=== PATIENT | female | born 1945 | race Caucasian/White ===

== ENCOUNTER 2016-10-10 18:15 | Emergency (ER) | payer OTHER, MEDICARE ==
[~2016-10-10] VITALS: Ht 167.6 cm; Wt 80.1 kg
[~2016-10-10 18:15] MED LIST: ASPCH81X PO; LIPITOR PO; OMEP20CA9 PO; VERA120T2 PO
[2016-10-10 18:25] VITALS: BP 155/82; PULSE 16; TEMP 36.6; Ht 167.6 cm; Wt 80.1 kg
[2016-10-10] MEDS ORDERED: LPT/20 PO (18:52)
[2016-10-10] MEDS ORDERED: OMEP20TA PO (18:52)
[2016-10-10] MEDS ORDERED: VERA1TAB52 PO (18:52)
[2016-10-10] MEDS ORDERED: ASPI81TA28 PO (18:52)
[2016-10-10 19:24] LABS: HEMATOCRIT 34.2 % (37-47); MEAN CELL VOLUME 92.7 fL (80-100); MEAN CORPUSCULAR HEMOGLOBIN 32.5 pg (25-34); MEAN CORPUSCULAR HGB CONC 35.1 g/dl (32-36); MEAN PLATELET VOLUME 9.3 fL (7.4-10.4); PLATELET COUNT 280 K/uL (130-400); RED BLOOD COUNT 3.69 M/uL (4.2-5.4); WHITE BLOOD COUNT 6.72 K/uL (4.8-10.8)
[2016-10-10 19:38] LABS: PARTIAL THROMBOPLASTIN RATIO 0.9; PROTHROMBIN TIME (PATIENT) 10.2 SECONDS (9.0-12.0)
[2016-10-10 19:42] LABS: BUN/CREATININE RATIO 14.9 (10-20); CALCIUM 8.6 mg/dl (8.5-10.1); CREATININE 0.68 mg/dl (0.60-1.20); POTASSIUM 3.5 mmol/L (3.5-5.1)
--- NOTE | 2016-10-10 19:44 | DIAGNOSTIC IMAGING REPORT ---
Venous Doppler left leg LEFT VENOUS DOPP LOWER EXT UNILAT CLINICAL HISTORY: LEFT, EVAL DVT pain. Edema. TECHNIQUE: Venous Doppler COMPARISON STUDY: None FINDINGS: Normal study IMPRESSION: Normal study Electronically signed by: Fredy Lisa M.D. 10/10/2016 7:42 PM
[2016-10-10 19:45] LABS: ALB/GLOB RATIO 1.2 (0.9-2)
--- NOTE | 2016-10-10 19:49 | EMERGENCY ROOM VISIT NOTE ---
ED Visit Note First contact with patient: 18:30 CHIEF COMPLAINT: Left calf pain, redness and swelling since yesterday HISTORY OF PRESENT ILLNESS: Patient is a 71-year-old white female who presents emergency Department accompanied by her for evaluation of left calf pain , redness, warmth and swelling that she noticed yesterday evening. She traveled by plane to [facility], and just returned yesterday. 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 She did undergo hypercoagulable workup which was negative. She was anticoagulated for several months and then discontinued. She is presently only taking a baby aspirin daily. She states that she wore knee-high compression stockings and walked on the plane as much as possible. She does admit that she was active and did a lot of walking while in [place]. She did not try taking any medications, nor perform any interventions for her symptoms. There has been no injury to the leg. She denies fever. She does not have any symptoms in the right leg. She denies any chest/back pain, palpitations or shortness of breath. REVIEW OF SYSTEMS: Review of systems as per HPI. All other systems reviewed were negative. 10 systems reviewed. PMH: Electronic medical records are reviewed and summarized as above/below. See Problem List. SOCIAL HISTORY: Patient lives at home. . Nonsmoker. PHYSICAL EXAM: Vital Signs: Reviewed Nurse's notes. CONSTITUTIONAL: Patient is a pleasant 71-year-old white female who was awake and alert and in no acute distress. Vital signs are stable. HEART: Regular rate and rhythm. LUNGS: Clear to auscultation. NEUROLOGICAL: Alert oriented, coherent. PERRL, EOMs full, gait normal. EXTREMITIES: Examination of the left leg show an area of slight swelling, erythema, and increased warmth in the proximal medial calf. She has some varicosities and spider veins present in this area, but no palpable cords. The thigh is soft and nontender. There is no pitting edema or joint effusions. Range of motion is full. There is no lymphangitic streaking. EMERGENCY DEPARTMENT COURSE: Laboratory studies including CBC, CMP and coags were drawn and were unremarkable. Ultrasound of the left lower extremity was negative for DVT. By exam, she does have findings that appear more consistent with a superficial thrombophlebitis. Cellulitis was considered, in addition to muscular strain. She was advised to apply warm compresses, take ibuprofen, and to rest and elevate the leg and return to normal activity as her symptoms allow. Follow up with her PCP for further care and management. Venous Doppler left leg LEFT VENOUS DOPP LOWER EXT UNILAT CLINICAL HISTORY: LEFT, EVAL DVT pain. Edema. TECHNIQUE: Venous Doppler COMPARISON STUDY: None FINDINGS: Normal study IMPRESSION: Normal study Problem List Medical Problems: (1) Cystitis Status: Resolved (2) Fibromyalgia Status: Chronic (3) Gastro-Esophageal Reflux Disease Without Esophagitis Status: Chronic (4) Hyperlipidemia, Unspecified Status: Chronic (5) Alf (Current) Use Of Aspirin Status: Chronic (6) Migraines Status: Chronic (7) Personal History Of Pulmonary Embolism Status: Resolved (8) TIA (transient ischemic attack) Status: Resolved Surgical Problems: (1) History of total hip replacement Status: Resolved Current/Historical Medications Scheduled Aspirin (Aspirin Ec), 81 MG PO DAILY Atorvastatin (Atorvastatin Calcium), 10 MG PO HS Verapamil Hcl (Verapamil Hcl Er), 120 MG PO DAILY Scheduled PRN Omeprazole (Omeprazole), 20 MG PO DAILY PRN for Indigestion Allergies Coded Allergies: Sulfa Antibiotics (Verified Allergy, Unknown, rash, 10/10/16) Vital Signs Date Time Temp Pulse Resp B/P Pulse Ox O2 Delivery O2 Flow Rate FiO2 10/10/16 18:25 36.6 16 99 155/82 Room Air Laboratory Results 10/10/16 11:12 10/10/16 11:12 Test 10/10/16 11:12 Red Blood Count 3.69 M/uL (4.2-5.4) Mean Corpuscular Volume 92.7 fL (80-100) Mean Corpuscular Hemoglobin 32.5 pg (25-34) Mean Corpuscular Hemoglobin Concent 35.1 g/dl (32-36) RDW Standard Deviation 43.9 fL (36.4-46.3) RDW Coefficient of Variation 13.0 % (11.5-14.5) Mean Platelet Volume 9.3 fL (7.4-10.4) Prothrombin Time 10.2 SECONDS (9.0-12.0) Prothromb Time International Ratio 1.0 (0.9-1.1) Activated Partial Thromboplast Time 24.3 SECONDS (21.0-31.0) Partial Thromboplastin Ratio 0.9 Anion Gap 9.0 mmol/L (3-11) Est Creatinine Clear Calc Drug Dose 83.3 ml/min Estimated GFR () 103.4 Estimated GFR (Non- 89.2 BUN/Creatinine Ratio 14.9 (10-20) Calcium Level 8.6 mg/dl (8.5-10.1) Total Bilirubin 0.3 mg/dl (0.2-1) Aspartate Amino Transf (AST/SGOT) 14 U/L (15-37) Alanine Aminotransferase (ALT/SGPT) 21 U/L (12-78) Alkaline Phosphatase 89 U/L (45-117) Total Protein 6.4 gm/dl (6.4-8.2) Albumin 3.5 gm/dl (3.4-5.0) Globulin 2.9 gm/dl (2.5-4.0) Albumin/Globulin Ratio 1.2 (0.9-2) Departure Information Impression Primary Impression: Leg pain, left Referrals Ravi Flores III, M.D. (PCP) Patient Instructions A Signature Page, [facility] Additional Instructions Ibuprofen(Motrin, Advil) may be used for fever or pain. Use 600mg every six hours as needed. Take with food. Avoid using more than 2400mg in a 24 hour period. Do not use 2400mg per day for more than three consecutive days without physician direction. Prolonged inappropriate use can lead to stomach upset or ulcers. (AND/OR) Acetaminophen(Tylenol) may be used for fever or pain. Use 1000mg every six hours as needed. Avoid using more than 3000mg in a 24 hour period. Warm compresses to the affected area 4 times daily for 15-20 minutes. Rest and drink plenty of fluids. Continue current medications. Return to the ER for severe pain, persistent fevers, spreading redness, or any worsening of your condition. Follow up with your primary physician within 2-3 days for a recheck of the current condition.
== END 2016-10-10 20:30 | disposition home or self-care (01) ==
LOC: C.EDB 18:17 → C.EDD 20:30
DX: M79.662 Pain in left lower leg (principal); E78.5 Hyperlipidemia, unspecified; Z79.82 Long term (current) use of aspirin; Z79.899 Other long term (current) drug therapy

== ENCOUNTER → 2017-12-02 | Outpatient (CLI) | payer OTHER, MEDICARE ==
[~2017-12-02] MED LIST changes: -ASPCH81X PO; +ASPI81TA28 PO; -LIPITOR PO; +LPT20 PO; -OMEP20CA9 PO; +OMEP20TA PO; -VERA120T2 PO; +VERA1TAB52 PO
--- NOTE | 2017-12-02 15:58 | DIAGNOSTIC IMAGING REPORT ---
CT HEAD WITHOUT CONTRAST (CT) CLINICAL HISTORY: Head pain status post trauma HEADACHE. VISUAL CHANGES. COMPARISON STUDY: 09/10/2015 TECHNIQUE: Axial CT of the brain is performed from the vertex to the skull base. IV contrast was not administered for this examination. A dose lowering technique was utilized adhering to the principles of ALARA. CT DOSE: 537.48 mGy.cm FINDINGS: No intra or extra-axial mass lesions are visualized. There is no CT evidence of acute cortical infarction. There is no evidence of midline shift. There is no acute hemorrhage. No calvarial fractures are visualized. A peripheral left frontal hypodensity likely represents partial volume averaging with a cortical sulcus There is no evidence of pathologic ventricular dilatation. There is no evidence of acute sinusitis IMPRESSION: 1. No evidence of acute intracranial injury 2. Peripheral left frontal hypodensity likely representing partial volume averaging Electronically signed by: Leonid Inman M.D. 12/02/2017 3:57 PM Dictated Date/Time: 12/02/2017 3:54 PM
== END | disposition home or self-care (01) ==
LOC: C.CTS 15:45
PROVIDERS: ATTEND Family Medicine
DX: S09.90XA Unspecified injury of head, initial encounter (principal); S16.1XXA Strain of muscle, fascia and tendon at neck level, initial encounter; S00.03XA Contusion of scalp, initial encounter; X58.XXXA Exposure to other specified factors, initial encounter; H53.8 Other visual disturbances; R93.0 Abnormal findings on diagnostic imaging of skull and head, not elsewhere classified

== ENCOUNTER → 2017-12-23 | Outpatient (CLI) | payer OTHER, MEDICARE | END | disposition home or self-care (01) | LOC: C.RDSM 20:33 | PROVIDERS: ATTEND Family Medicine | DX: M25.571 Pain in right ankle and joints of right foot (principal); M79.671 Pain in right foot ==

== ENCOUNTER → 2017-12-25 | Outpatient (CLI) | payer OTHER, MEDICARE ==
--- NOTE | 2017-12-25 19:37 | DIAGNOSTIC IMAGING REPORT ---
R LOWER EXT JOINT WITHOUT CLINICAL HISTORY: 72 years-old Female with RT ANKLE PAIN,RT FOOT PAIN,STRESS FX OF NAVICULAR. Acute right foot and ankle pain for approximately 1 month with concern for navicular fracture COMPARISON: Right foot and ankle radiographs 12/23/2017 TECHNIQUE: Multiplanar, multi sequence MRI of the right hindfoot was performed without contrast. FINDINGS: LATERAL LIGAMENT COMPLEX: The anterior talofibular ligament, calcaneofibular ligament and posterior talofibular ligaments are intact. SYNDESMOTIC LIGAMENTS: The anterior-inferior tibiofibular ligament, interosseous membrane and posterior-inferior tibiofibular ligaments are intact. DELTOID LIGAMENT COMPLEX: The superficial and deep components of the deltoid ligament are intact. ANTERIOR TENDONS: The tibialis anterior, extensor hallucis longus and extensor digitorum longus tendons are normal in position, morphology and signal. LATERAL TENDONS: The peroneus longus and brevis tendons are intact. Minimal fluid adjacent to the peroneus longus and brevis tendons along their inframalleolar coarse is likely physiologic. MEDIAL TENDONS: The posterior tibialis, flexor digitorum longus and flexor hallucis longus tendons are intact. Trace tenosynovitis of the tibialis posterior. PLANTAR FASCIA: The medial and lateral bundles of the plantar fascia are normal in morphology and signal. There is no evidence of acute plantar fasciitis or tear. No evidence of plantar fascial nodules. Mild thickening of the medial cord plantar fascia may reflect sequela of chronic plantar fasciitis. ACHILLES TENDON: The Achilles tendon is normal in position, morphology and signal. No associated bursitis. Trace fluid within the retrocalcaneal bursa. SINUS TARSI: There is normal fat signal within the sinus tarsi. The interosseous and cervical ligaments are normal. The navicular-calcaneal (spring) ligament is without acute abnormality. TARSAL TUNNEL: There are no obstructing lesions within the tarsal tunnel. BONE MARROW: Talar dome is smooth without osteochondral defect. Mild joint space narrowing with marginal spurring of the tibiotalar joint. There is mild bone marrow edema of the anterior process talus, most pronounced medially. Predominately mild chondral thinning, joint space narrowing and marginal spurring is noted about the midfoot with areas of minimal degenerative subcortical cystic change involving the lateral navicular adjacent to the navicular calcaneal articulation. No acute fracture or dislocation identified. No evidence of stress fracture. Degenerative changes about the first MTP joint are partially imaged. SOFT TISSUES: Trace tibiotalar and subtalar joint effusions. IMPRESSION: 1. Mild bone marrow edema of the anterior process talus, most pronounced medially without acute fracture may be reactive or reflect a small bone contusion. 2. Mostly mild degenerative changes about the midfoot as above. 3. Trace tenosynovitis of the tibialis posterior tendon. The above report was generated using voice recognition software. It may contain grammatical, syntax or spelling errors. Electronically signed by: Vinnie Javed M.D. 12/25/2017 7:35 PM Dictated Date/Time: 12/25/2017 7:23 PM
--- NOTE | 2017-12-25 20:01 | DIAGNOSTIC IMAGING REPORT ---
R LOWER EXT NONJOINT WITHOUT HISTORY: 72 years-old Female RT ANKLE PAIN,RT FOOT PAIN,STRESS FX OF NAVICULAR acute pain of the right forefoot COMPARISON: Right hind foot MRI of same day, right foot and ankle radiographs 12/23/2017 TECHNIQUE: Multiplanar multisequence MRI of the right forefoot was obtained without IV contrast. FINDINGS: The large [id number] shake backboard notcher localizer images demonstrate no gross abnormality. There is moderate joint space narrowing with chondral thinning, subchondral sclerosis and marginal spurring about the first MTP joint with mild hallux valgus deformity. Mild subcortical cystic changes/edema involves the articulation of the first metatarsal head with the hallux sesamoids with moderate joint space narrowing and marginal spurring. There is no acute fracture or dislocation. There is hyperextension of the metatarsal phalangeal joints with mild flexion of the PIP joints, notably involving the second through fourth digits. At least mild degenerative changes are seen throughout the interphalangeal joints with mostly mild joint space narrowing, chondral thinning and marginal spurring of the imaged mid foot. No evidence of acute stress fracture, significant bone marrow edema or periostitis. No evidence of intermetatarsal bursitis, adventitial bursitis or perineural fibrosis (Lyons neuroma). Plantar plates appear intact. Soft tissues are unremarkable. Imaged flexor and extensor tendons appear intact. The dorsal, interosseous and volar bands of the Lisfranc ligament appear intact. There is mild atrophy of the intrinsic musculature about the forefoot. IMPRESSION: 1. No acute fracture, stress fracture or significant focal bone marrow edema. 2. Degenerative changes as above, most pronounced within the first MTP joint where there is moderate disease. 3. Mild hallux valgus deformity. 4. No evidence of acute ligamentous or tendon injury. The above report was generated using voice recognition software. It may contain grammatical, syntax or spelling errors. Electronically signed by: Vinnie Javed M.D. 12/25/2017 8:00 PM Dictated Date/Time: 12/25/2017 7:49 PM
== END | disposition home or self-care (01) ==
LOC: C.MRI 17:32
PROVIDERS: ATTEND Family Medicine
DX: M84.374A Stress fracture, right foot, initial encounter for fracture (principal); X58.XXXA Exposure to other specified factors, initial encounter; M25.571 Pain in right ankle and joints of right foot; M79.671 Pain in right foot

== ENCOUNTER 2018-01-11 11:53 | Emergency (ER) | payer OTHER, MEDICARE ==
[~2018-01-11] VITALS: Ht 167.6 cm; Wt 70.0 kg
[2018-01-11 12:01] VITALS: TEMP 36.6; Ht 167.6 cm; Wt 70.0 kg
[2018-01-11] MEDS ORDERED: ASPIRIN 81 MG CHEW PO STA (12:12)
--- NOTE | 2018-01-11 12:20 | EMERGENCY ROOM VISIT NOTE ---
History Report prepared by Nichole: Ramon De Luna Under the Supervision of: Dr. Fredis Umaña M.D. First contact with patient: 12:05 Chief Complaint: RESPIRATORY DISTRESS Stated Complaint: CHEST PAIN,POSSIBLE PE,DOCTOR REFERRED Nursing Triage Summary: pt here with some sob and chest discomfort since saturday. pt sent by pcp because pt has hx of pe after having surgery. pt currently is wearing a walking boot for foot pain. pt denies any calf pain. History of Present Illness The patient is a 72 year old female who presents to the Emergency Room with complaints of constant chest pain beginning 4 days ago. The patient notes that her chest pain is bilateral and rates it as 8/10 in severity. She reports that today she was seen by her PCP and had an EKG conducted. The patient's PCP referred her to the ED to further evaluate her pain. The patient notes that taking deep breaths makes her pain worse, but states that rest alleviates the pain. The patient reports a history of pulmonary embolism 10 years ago following surgery. She states that she was on blood thinners to treat the clot, but now only takes a baby aspirin daily. The patient also notes that her father of a LA at the age of 52. The patient denies any fever, vomiting, diarrhea , or cough, but notes a sore throat. The patient states that she fell out of the shower and hit her head several weeks ago for which she had a CT of her head conducted. She denies experiencing any chest pain immediately following the fall or in the days after. The patient notes that she has a boot on her right leg for inflammation which has been in place for the past two weeks. Source of History: patient Onset: 4 days ago. Position: chest Symptom Intensity: 8/10 Timing: constant Modifying Factors (Worsening): breathing (deep breaths) Modifying Factors (Relieving): rest Associated Symptoms: + sorethroat, No fevers, No cough, No vomiting, No diarrhea Review of Systems See HPI for pertinent positives & negatives. A total of 10 systems reviewed and were otherwise negative. Past Medical & Surgical Medical Problems: (1) Cystitis (2) Fibromyalgia (3) Gastro-Esophageal Reflux Disease Without Esophagitis (4) Hyperlipidemia, Unspecified (5) Fpc (Current) Use Of Aspirin (6) Migraines (7) Personal History Of Pulmonary Embolism (8) TIA (transient ischemic attack) Surgical Problems: (1) History of total hip replacement Family History FH: heart disease Social History Smoking Status: Never Smoker Marital Status: Housing Status: lives with significant other Occupation Status: retired Current/Historical Medications Scheduled Aspirin (Aspirin Ec), 81 MG PO QAM Atorvastatin (Lipitor), 10 MG PO 1700 Verapamil Hcl (Verapamil Hcl Er), 120 MG PO 1700 Scheduled PRN Omeprazole (Omeprazole), 20 MG PO DAILY PRN for Indigestion Allergies Coded Allergies: Sulfa Antibiotics (Verified Allergy, Unknown, rash, 01/11/18) Physical Exam Vital Signs Date Time Temp Pulse Resp B/P (MAP) Pulse Ox O2 Delivery O2 Flow Rate FiO2 01/11/18 14:30 87 16 118/74 99 01/11/18 12:51 81 15 115/73 96 Room Air 01/11/18 12:29 90 01/11/18 12:28 96 Room Air 01/11/18 12:01 36.6 94 16 138/73 97 Room Air Physical Exam GENERAL: Patient is in no acute distress. HEENT: No acute trauma, normocephalic atraumatic, mucous membranes moist, no nasal congestion, no scleral icterus. Chest: Non-tender chest wall, pain worsens lying flat. NECK: No stridor, no adenopathy, no meningismus, trachea is midline. LUNGS: Clear to auscultation bilaterally, no wheeze, no rhonchi, breath sounds equal. HEART: Without murmurs gallops or rubs, regular rate and rhythm. ABDOMEN: Soft, nontender, bowel sounds positive, no hernias, no peritonitis. EXTREMITIES: No cyanosis or edema, full range of motion of all the joints without pain or difficulty, no signs for acute trauma. Boot on the right ankle and foot. NEUROLOGIC: Oriented x 3, no acute motor or sensory deficits, no focal weakness. SKIN: No rash, no jaundice, no diaphoresis. Medical Decision & Procedures ER Provider Diagnostic Interpretation: Radiology results as stated below per my review and radiologist interpretation: (CHEST FOR PE) ANGIO WITH CLINICAL HISTORY: 72 years-old Female presenting with shortness of breath and chest discomfort since Saturday, history of remote pulmonary embolus. TECHNIQUE: Multidetector CT angiography of the chest was performed after administration of intravenous contrast. 3-D volumetric and/or maximum intensity projection (MIP) images were subsequently reconstructed for review. IV contrast: 75 mL of Optiray 320. A dose lowering technique was used consistent with the principles of ALARA (as low as reasonably achievable). COMPARISON: None. CT DOSE (mGy.cm): The estimated cumulative dose is 180.79 mGy.cm. FINDINGS: Bag End Sewer topogram: Unremarkable. Pulmonary vasculature: The study is adequate for assessment of the pulmonary vascular tree. No filling defect within the pulmonary arteries to suggest embolus. Main pulmonary artery is not enlarged. No flattening of the interventricular septum. No intracardiac filling defect. No reflux of contrast into the hepatic veins. Remaining chest: On soft tissue windows, normal thyroid. Apparent masslike region in the superior left breast (series 4 image 111). No axillary, supraclavicular, hilar, or mediastinal lymphadenopathy. Normal aorta. Normal heart size. Trace pericardial effusion. No pleural effusion. Small hiatal hernia. On lung windows, bandlike opacities at the lung bases likely atelectasis. No other focal infiltrate or nodule. Airways patent. On bone windows, normal osseous structures. IMPRESSION: 1. No evidence of pulmonary embolus. No acute intrathoracic pathology. 2. Bibasilar atelectasis. 3. Masslike region in the superior left breast. Dedicated mammographic evaluation recommended. The report will be called/faxed according to standard departmental protocol. Electronically signed by: Jean Claude Schwab M.D. 01/11/2018 1:38 PM Dictated Date/Time: 01/11/2018 1:32 PM Laboratory Results 01/11/18 12:30 01/11/18 12:30 Test 01/11/18 12:30 Red Blood Count 4.20 M/uL (4.2-5.4) Mean Corpuscular Volume 93.1 fL (80-100) Mean Corpuscular Hemoglobin 32.4 pg (25-34) Mean Corpuscular Hemoglobin Concent 34.8 g/dl (32-36) RDW Standard Deviation 43.0 fL (36.4-46.3) RDW Coefficient of Variation 12.6 % (11.5-14.5) Mean Platelet Volume 9.4 fL (7.4-10.4) Prothrombin Time 10.0 SECONDS (9.0-12.0) Prothromb Time International Ratio 1.0 (0.9-1.1) Activated Partial Thromboplast Time 24.3 SECONDS (21.0-31.0) Partial Thromboplastin Ratio 0.9 Anion Gap 8.0 mmol/L (3-11) Est Creatinine Clear Calc Drug Dose 73.1 ml/min Estimated GFR () 103.2 Estimated GFR (Non- 89.1 BUN/Creatinine Ratio 16.4 (10-20) Calcium Level 9.2 mg/dl (8.5-10.1) Total Bilirubin 0.7 mg/dl (0.2-1) Aspartate Amino Transf (AST/SGOT) 15 U/L (15-37) Alanine Aminotransferase (ALT/SGPT) 23 U/L (12-78) Alkaline Phosphatase 97 U/L (45-117) Troponin I < 0.015 ng/ml (0-0.045) Total Protein 7.4 gm/dl (6.4-8.2) Albumin 3.7 gm/dl (3.4-5.0) Globulin 3.6 gm/dl (2.5-4.0) Albumin/Globulin Ratio 1.0 (0.9-2) Lipase 105 U/L (73-393) Laboratory results reviewed by me. Medications Administered Medications (Trade) Dose Ordered Sig/Ebenezer Route Start Time Stop Time Status Last Admin Dose Admin Aspirin (Aspirin Chew) 324 mg NOW STAT PO 01/11/18 12:12 01/11/18 12:14 DC 01/11/18 12:35 324 MG ECG Per My Interpretation Indication: chest pain Rate (beats per minute): 83 Rhythm: normal sinus Findings: no ectopy, other (No ST elevation or PVCs) ED Course 1206: The patient was evaluated in room A12. A complete history and physical exam was performed. 1212: Ordered Aspirin 324 mg PO. Medical Decision The patient is a 72 year old female who presents to the ED with complaints of chest pain. Differential diagnoses considered include Musculoskeletal pain, LA , aortic dissection, PE, pericarditis, pneumonia, or trauma. . There is no leukocytosis or concerning anemia. No significant electrolyte abnormality, kidney failure or hepatitis. There is no coagulopathy. EKG shows a normal sinus rhythm, no acute ischemia. Cardiac enzyme testing 1 is not consistent with acute cardiac injury. Chest CT does not show evidence for PE, aortic dissection or pneumonia. A lesion on the left breast was noted. The patient was given oral aspirin, she is resting fairly comfortably. Patient is not hypoxic or toxic. The pain in the chest does seem to be positional. Pain is likely musculoskeletal. In regard to the lesion on the left breast, the patient is aware and has had follow-up. The patient is being discharged with nonsteroidals, heat to the chest wall and family doctor follow-up. If worsening, she can return. Medication Reconcilliation Current Medication List: was personally reviewed by me Blood Pressure Screening Patient's blood pressure: Normal blood pressure Impression Primary Impression: Anterior chest wall pain Scribe Attestation The scribe's documentation has been prepared under my direction and personally reviewed by me in its entirety. I confirm that the note above accurately reflects all work, treatment, procedures, and medical decision making performed by me. Departure Information Dispostion Home / Self-Care Referrals Ravi Flores III, M.D. (PCP) Forms HOME CARE DOCUMENTATION FORM, IMPORTANT VISIT INFORMATION Patient Instructions Asthma - [facility], COPD - [facility], Croup - [facility], [facility] Additional Instructions see your doctor about the left breast abnormality we discussed heat to the chest wall may help rest may use tylenol for pain if needed use motrin 600 mg (3 tabs) 3x per day for 5 days return if worsening or develop fever
[2018-01-11 12:28] VITALS: O2SAT 96
[2018-01-11] MEDS ORDERED: OPTIRAY 320 IV PRN (12:30)
[2018-01-11 12:46] LABS: HEMATOCRIT 39.1 % (37-47); HEMOGLOBIN 13.6 g/dL (12.0-16.0); MEAN CELL VOLUME 93.1 fL (80-100); MEAN CORPUSCULAR HEMOGLOBIN 32.4 pg (25-34); MEAN CORPUSCULAR HGB CONC 34.8 g/dl (32-36); MEAN PLATELET VOLUME 9.4 fL (7.4-10.4); PLATELET COUNT 267 K/uL (130-400); RED CELL DISTRIBUTION WIDTH CV 12.6 % (11.5-14.5); WHITE BLOOD COUNT 7.42 K/uL (4.8-10.8)
[2018-01-11 12:56] LABS: PTT PATIENT 24.3 SECONDS (21.0-31.0)
[2018-01-11 13:02] LABS: ALBUMIN 3.7 gm/dl (3.4-5.0); ALT/SGPT 23 U/L (12-78); AST/SGOT 15 U/L (15-37); BLOOD UREA NITROGEN 11 mg/dl (7-18); CALCIUM 9.2 mg/dl (8.5-10.1); CARBON DIOXIDE 25 mmol/L (21-32); CREATININE 0.67 mg/dl (0.60-1.20); GLUCOSE 95 mg/dl (70-99); LIPASE 105 U/L (73-393); POTASSIUM 3.8 mmol/L (3.5-5.1); SODIUM 137 mmol/L (136-145)
[2018-01-11 13:07] LABS: ALKALINE PHOSPHATASE 97 U/L (45-117); TOTAL PROTEIN 7.4 gm/dl (6.4-8.2)
--- NOTE | 2018-01-11 13:39 | DIAGNOSTIC IMAGING REPORT ---
(CHEST FOR PE) ANGIO WITH CLINICAL HISTORY: 72 years-old Female presenting with shortness of breath and chest discomfort since Saturday, history of remote pulmonary embolus. TECHNIQUE: Multidetector CT angiography of the chest was performed after administration of intravenous contrast. 3-D volumetric and/or maximum intensity projection (MIP) images were subsequently reconstructed for review. IV contrast: 75 mL of Optiray 320. A dose lowering technique was used consistent with the principles of ALARA (as low as reasonably achievable). COMPARISON: None. CT DOSE (mGy.cm): The estimated cumulative dose is 180.79 mGy.cm. FINDINGS: Automation Engineering Technician topogram: Unremarkable. Pulmonary vasculature: The study is adequate for assessment of the pulmonary vascular tree. No filling defect within the pulmonary arteries to suggest embolus. Main pulmonary artery is not enlarged. No flattening of the interventricular septum. No intracardiac filling defect. No reflux of contrast into the hepatic veins. Remaining chest: On soft tissue windows, normal thyroid. Apparent masslike region in the superior left breast (series 4 image 111). No axillary, supraclavicular, hilar, or mediastinal lymphadenopathy. Normal aorta. Normal heart size. Trace pericardial effusion. No pleural effusion. Small hiatal hernia. On lung windows, bandlike opacities at the lung bases likely atelectasis. No other focal infiltrate or nodule. Airways patent. On bone windows, normal osseous structures. IMPRESSION: 1. No evidence of pulmonary embolus. No acute intrathoracic pathology. 2. Bibasilar atelectasis. 3. Masslike region in the superior left breast. Dedicated mammographic evaluation recommended. The report will be called/faxed according to standard departmental protocol. Electronically signed by: Jean Claude Schwab M.D. 01/11/2018 1:38 PM Dictated Date/Time: 01/11/2018 1:32 PM
[2018-01-11 14:30] VITALS: BP 118/74; PULSE 87; O2SAT 99
== END 2018-01-11 14:32 | disposition home or self-care (01) ==
LOC: C.EDB 11:55 → C.EDA 14:32
DX: R07.89 Other chest pain (principal); J02.9 Acute pharyngitis, unspecified; M79.7 Fibromyalgia; E78.5 Hyperlipidemia, unspecified; K21.9 Gastro-esophageal reflux disease without esophagitis; Z79.82 Long term (current) use of aspirin; Z86.711 Personal history of pulmonary embolism; Z96.649 Presence of unspecified artificial hip joint; Z86.73 Personal history of transient ischemic attack (TIA), and cerebral infarction without residual deficits; Z88.2 Allergy status to sulfonamides; Z82.49 Family history of ischemic heart disease and other diseases of the circulatory system